=== PATIENT | male | born 1955 | race Caucasian/White ===

== ENCOUNTER 2021-09-28 06:04 | Inpatient (IN) | payer OTHER ==
[~2021-09-28] VITALS: Ht 185.4 cm; Wt 91.6 kg
[2021-09-28] MEDS ORDERED: ONDANSETRON HCL/PF 4 MG/2 ML VIAL ONE (06:21)
[2021-09-28] MEDS ORDERED: MORPHINE SULFATE INJ 4 MG/ML DISP.SYRIN ONE (06:21)
[2021-09-28] MEDS ORDERED: IV NS 0.9% 500 ML BAG IV ONE (06:30)
[2021-09-28] MEDS ORDERED: ONDANSETRON HCL/PF 4 MG/2 ML VIAL IVP ONE (06:30)
[2021-09-28] MEDS ORDERED: MORPHINE SULFATE INJ 2 MG/ML DISP.SYRIN IV ONE (06:30)
--- NOTE | 2021-09-28 06:38 | NUR ---
PATIENT [id number] C/O ABD NON RAD, STARTED AT 0200. PATIENT IS A/O X 4 RR EVEN AND UNLABORED, NO SOB NOTED. PATIENT TAKEN TO ER BED 06. PATIENT CONNECTED TO CARDIAC AND POX MONITOR.
--- NOTE | 2021-09-28 06:39 | NUR ---
BLOOD WORK COLLECTED AND SENT TO LAB
--- NOTE | 2021-09-28 06:40 | NUR ---
PATIENT UNABLE TO PROVIDE URINE AT THIS TIME. PATIENT WILL KEEP TRYING.
[2021-09-28 06:52] LABS: BASOPHILS # (AUTO) 0.1 K/uL (0.0-0.2); BASOPHILS % (AUTO) 0.6 % (0.0-2.0); EOSINOPHILS % (AUTO) 0.6 % (0.0-6.0); HEMATOCRIT 42 % (39-51); HEMOGLOBIN 14.8 g/dL (13.5-17.5); LYMPHOCYTES # (AUTO) 2.1 K/uL (0.8-4.8); MEAN CORPUSCULAR HGB CONC 35 g/dl (31.0-36.0); MEAN CORPUSCULAR VOLUME 91 fL (80-96); MONOCYTES # (AUTO) 0.5 K/uL (0.1-1.30); MONOCYTES % (AUTO) 4.9 % (2.0-12.0); NEUTROPHILS # (AUTO) 7.3 K/uL (1.8-8.9); NEUTROPHILS % (AUTO) 72.9 % (43.0-81.0); PLATELET COUNT (AUTO) 282 K/uL (150-450); RED BLOOD CELL COUNT(AUTO) 4.63 MIL/uL (4.5-6.0)
--- NOTE | 2021-09-28 06:55 | NUR ---
PATIENT TAKEN TO CT
[2021-09-28 07:18] LABS: ALBUMIN 4.3 g/dL (3.4-5.0); BILIRUBIN,DIRECT 0.1 mg/dL (0.0-0.2); BILIRUBIN,TOTAL 0.5 mg/dL (0.2-1.0); CALCIUM, SERUM 8.9 mg/dL (8.5-10.1); CREATININE 1.1 mg/dL (0.6-1.3); POTASSIUM 3.3 mmol/L (3.5-5.1); TOTAL PROTEIN, SERUM 7.8 g/dL (6.4-8.2)
--- NOTE | 2021-09-28 08:02 | NUR ---
URINE COLLECTED AND SENT TO LAB
[2021-09-28 08:18] LABS: BILIRUBIN,URINE NEGATIVE (NEGATIVE); COLOR,URINE YELLOW (YELLOW); LEUKOCYTE ESTERASE ,URINE NEGATIVE (NEGATIVE); NITRITE, URINE NEGATIVE (NEGATIVE); PH,URINE 6.5 (5.0-8.0); PROTEIN,URINE NEGATIVE (NEGATIVE); UGLUCOSE NEGATIVE (NEGATIVE); UROBILINOGEN,URINE 0.2 EU/dL (0.2)
--- NOTE | 2021-09-28 08:29 | NUR ---
covid antigen swab done and sent to the lab
[2021-09-28] MEDS ORDERED: PIPERACILLIN /TAZOBACTAM 3.375 G in IV D5W 50 ML IV ONE (08:30)
[2021-09-28] MEDS ORDERED: DOCU250C14 PO (08:38)
[2021-09-28] MEDS ORDERED: ERGO500093 PO (08:38)
[2021-09-28] MEDS ORDERED: ATOR10TA PO (08:38)
[2021-09-28] MEDS ORDERED: AMLO-212 PO (08:38)
[2021-09-28] MEDS ORDERED: CITA20TA16 PO (08:38)
--- NOTE | 2021-09-28 08:40 | NUR ---
MOVE SHEET SUBMITTED.
[2021-09-28 08:53] LABS: BACTERIA,URINE Rare /HPF (None Seen); RBC,URINE 0-2 /HPF (0-2); SQUAMOUS EPITHELIAL CELL,UR Few /HPF (None Seen); WBC,URINE 0-2 /HPF (0-3)
--- NOTE | 2021-09-28 09:11 | NUR ---
TAKEN VIA [facility] FOR HIDA SCAN
[2021-09-28] MEDS ORDERED: HYDROMORPHONE 1 MG/1 ML DISP.SYRIN IV ONE (10:30)
[2021-09-28] MEDS ORDERED: HYDROMORPHONE 1 MG/1 ML DISP.SYRIN ONE (10:53)
--- NOTE | 2021-09-28 12:32 | NUR ---
[facility]
--- NOTE | 2021-09-28 13:44 | NUR ---
THE PATIENT IS TRANSFERED TO ROOM 304-2 IN STABLE CONDITION AND PER POLICY
[2021-09-28] MEDS: ENOXAPARIN SODIUM 40 MG/0.4 ML DISP.SYRIN SQ SCH (14:00)
[2021-09-28] MEDS: IV NS 0.9% 1,000 ML IV PRN (14:50)
--- NOTE | 2021-09-28 15:01 | NUR ---
MS REMOTE RUBY ON RAILS DEVELOPER NOTE PT ADMITTED TO UNIT VIA WHEELCHAIR AT 1420 WITH DIAGNOSIS OF ACUTE CHOLECYSTITIS. A/O X4. ABLE TO MAKE NEEDS KNOWN. PT ORIENTED TO STAFF AND ROOM. V/S TAKEN AND RECORDED. PT ON ROOM AIR, TOLERATING WELL, BREATHING EVEN AND UNLABORED, NO ACUTE RESPIRATORY DISTRESS NOTED. SKIN IS INTACT. IV ACCESS NOTED ON RAC #20G INTACT AND PATENT, IVF OF NS @ 75ML/HR STARTED PER MD ORDER. LUNGS CLEAR ON AUSCULTATION. ABDOMEN SOFT, MILD TENDERNESS NOTED ON RIGHT UPPER QUADRANT WITH POSITIVE BOWEL SOUNDS PRESENT. SAFETY PRECAUTIONS IMPLEMENTED: BED IN LOWEST LOCKED POSITION, SIDE RAILS UP X2 CALL LIGHT AND TRAY TABLE WITHIN PLACED W/I EASY REACH OF PT. MAINTAINED PT NPO ORDERED. WILL CONTINUE TO MONITOR PT ACCORDINGLY.
--- NOTE | 2021-09-28 15:09 | NUR ---
RN NOTES HOLD LOVENOX TODAY PER DR CHAUDHARY.
--- NOTE | 2021-09-28 15:30 | NUR ---
RN NOTES PATIENT ASKED FOR PAIN MEDICATION BUT CHANGED HIS MIND SAYING HE IS ABLE TO TOLERATE IT FOR NOW. WILL ASK AGAIN LATER.
[2021-09-28 16:00] VITALS: BP 161/101
--- NOTE | 2021-09-28 17:12 | NUR ---
RN NOTES PT FOR LAP CHOLECYSTECTOMY BY DR ROSE TOMORROW. ALL CONSENTS SIGNED AND PLACED ON HIS CHART. NPO MAINTAINED.
[2021-09-28] MEDS ORDERED: PIPERACILLIN /TAZOBACTAM 3.375 G in IV D5W 50 ML IV SCH (18:00)
[2021-09-28] MEDS: PIPERACILLIN /TAZOBACTAM 3.375 G in IV D5W 100 ML IV SCH (18:14)
--- NOTE | 2021-09-28 18:20 | NUR ---
RN NOTES NOTED POTASSIUM IS LOW AT 3.3, REPORTED TO PHARMACY AND SPOKE TO [facility] WHO PLACED AN ORDER FOR A REPLACEMENT.
[2021-09-28] MEDS: POTASSIUM CL. PREMIX PERIPHER. 50 ML IV SCH ×2 (18:45→20:01)
--- NOTE | 2021-09-28 19:00 | NUR ---
MS VENEER MANUFACTURER NOTE PATIENT A/O X4. ABLE TO MAKE NEEDS KNOWN. PT ORIENTED TO STAFF AND ROOM. . PT ON ROOM AIR, TOLERATING WELL, BREATHING EVEN AND UNLABORED, NO ACUTE RESPIRATORY DISTRESS NOTED. SKIN IS INTACT. IV ACCESS NOTED ON RAC #20G INTACT AND PATENT WITH RUNNING ZOSYN AND REPLACEMENT POTASSIUM ON Y-TUBING. REINFORCED NPO HEALTH TEACHING FOR NEXT DAY'S PROCEDURE. PATIENT VERBALIZED UNDERSTANDING. PATIENT'S BED IN LOWEST LOCKED POSITION, SIDE RAILS UP X2 CALL LIGHT AND TRAY TABLE WITHIN PLACED W/I EASY REACH OF PT. Addendum: 09/28/21 at 1901 by JIGNA HERNANDEZ RN CORRECTION: MS ZAPIEN CLOSING NOTES
--- NOTE | 2021-09-28 19:35 | NUR ---
MS RN OPENING NOTE PATIENT AWAKE IN BED, ALERT/ORIENTED X 4, PT ABLE TO MAKE NEEDS KNOWN. PT STABLE ON RA, NO S/S OF DISTRESS OR SOB NOTED, BREATHING EVEN AND UNLABORED. PT EXPERIENCING PAIN BUT STATES DOESN'T WANT PAIN MEDS AT THIS TIME, PT ALSO EXPERIENCING HICCUPS. RAC #20G INTACT AND INFUSING ZOSYN 25 ML/HR AND POTASSIUM @ 25 ML/HR. SAFETY MEASURES IN PLACE: CALL LIGHT WITHIN REACH, SIDE RAILS UP X 2, BED LOCKED IN LOWEST POSITION, BED ALARM ON. WILL CONTINUE TO MONITOR PATIENT
[2021-09-28 20:00] VITALS: BP 160/100
--- NOTE | 2021-09-28 20:25 | NUR ---
MS RN NOTE PATIENT REPORTING 10/10 ABDOMINAL PAIN, NAUSEA, AND CONSTANT HICCUPS. PATIENT STATES HE'S FEELING DIAPHORETIC AND CHILLS, SOME REDNESS ON SKIN NOTED, NO RASH OR ITCHING. IV DISCONNECTED AND LINE FLUSHED PER CHARGE NURSE, PREVIOUSLY RUNNING ZOSYN @ 25 ML/HR AND POTASSIUM @ 25 ML/HR. PATIENT CONNECTED TO EXTERNAL JOINTER OPERATOR TO MONITOR PATIENT, SHOWING SINUS TACHY, HR: 108. WILL CONTINUE TO MONITOR.
[2021-09-28] MEDS: ONDANSETRON HCL/PF 4 MG/2 ML VIAL IVP PRN (20:34)
[2021-09-28] MEDS: MORPHINE SULFATE INJ 2 MG/ML DISP.SYRIN IV PRN (20:34)
--- NOTE | 2021-09-28 20:35 | NUR ---
MS RN NOTE MORPHINE 2 MG IV AND ZOFRAN 4 MG IV GIVEN FOR 10/10 ABDOMINAL PAIN AND NAUSEA. WILL CONTINUE TO MONITOR PATIENT
--- NOTE | 2021-09-28 20:45 | NUR ---
MS RN NOTE PATIENT FEELING MUCH BETTER, NAUSEA, HICCUPS AND PAIN IMPROVED. NO LONGER HAVING CHILLS. NO RASH NOTED. PATIENT CONNECTED TO IVF - NS @ 75 ML/HR. WILL CONTINUE TO MONITOR
[2021-09-28] MEDS ORDERED: MAG HYDROX/AL HYDROX/SIMETH 30 ML UDC PO ONE (23:45)
--- NOTE | 2021-09-29 | NUR ---
MS RN NOTE PATIENT CONTINUES TO EXPERIENCE CONSTANT HICCUPS, DYSPEPSIA AND NAUSEA. CONTACT MANAGER APPLICATION DEVELOPMENT MD WITH ONE TIME ORDER FOR MAALOX 30 ML, ORDER CONFIRMED AND CARRIED OUT. WILL CONTINUE TO MONITOR PATIENT
[2021-09-29] MEDS: MORPHINE SULFATE INJ 2 MG/ML DISP.SYRIN IV PRN (02:34)
[2021-09-29] MEDS: ONDANSETRON HCL/PF 4 MG/2 ML VIAL IVP PRN (02:34)
--- NOTE | 2021-09-29 02:40 | NUR ---
MS RN NOTE PATIENT REPORTING 10/10 ABDOMINAL PAIN AND NAUSEA. MORPHINE 2 MG IV AND ZOFRAN 4 MG IV GIVEN ORDERED. WILL CONTINUE TO MONITOR PATIENT
[2021-09-29] MEDS: PIPERACILLIN /TAZOBACTAM 3.375 G in IV D5W 100 ML IV SCH ×3 (03:41→18:07)
[2021-09-29 06:10] LABS: BASOPHILS # (AUTO) 0.1 K/uL (0.0-0.2); BASOPHILS % (AUTO) 0.3 % (0.0-2.0); HEMATOCRIT 43 % (39-51); LYMPHOCYTES # (AUTO) 2.7 K/uL (0.8-4.8); LYMPHOCYTES % (AUTO) 13.9 % (20.0-44.0); MEAN CORPUSCULAR HGB CONC 35 g/dl (31.0-36.0); MEAN CORPUSCULAR VOLUME 92 fL (80-96); MONOCYTES # (AUTO) 1.5 K/uL (0.1-1.30); MONOCYTES % (AUTO) 7.6 % (2.0-12.0); NEUTROPHILS # (AUTO) 15.3 K/uL (1.8-8.9); NEUTROPHILS % (AUTO) 78.2 % (43.0-81.0); PLATELET COUNT (AUTO) 286 K/uL (150-450); RED BLOOD CELL COUNT(AUTO) 4.71 MIL/uL (4.5-6.0); WHITE BLOOD COUNT (AUTO) 19.6 K/uL (4.3-11.0)
[2021-09-29 07:16] LABS: CALCIUM, SERUM 8.9 mg/dL (8.5-10.1); PHOSPHORUS 3.5 mg/dL (2.5-4.9); POTASSIUM 3.7 mmol/L (3.5-5.1)
--- NOTE | 2021-09-29 07:25 | NUR ---
MS RN OPENING NOTE RECEIVED PT AWAKE IN BED. A/O X4, ABLE TO MAKE NEEDS KNOWN. ON RA TOLERATING WELL. NO SOB NOTED. NOT IN ANY SIGN OF RESPIRATORY DISTRESS. IV ACCESS IN RAC G #20 INTACT AND PATENT WITH NS INFUSING AT 75ML/HR. SAFETY MEASURES IN PLACE: BED IN LOWEST AND LOCKED POSITION, SIDE RAILS UPX2, CALL LIGHT WITHIN REACH. WILL CONTINUE TO MONITOR PT.
--- NOTE | 2021-09-29 07:26 | NUR ---
MS RN CLOSING NOTE PATIENT AWAKE IN BED, ALERT/ORIENTED X 4, PT ABLE TO MAKE NEEDS KNOWN. PT STATES HE'S FEELING MUCH BETTER THIS MORNING, NO COMPLAINTS OF PAIN. PT STABLE ON RA, NO S/S OF DISTRESS OR SOB NOTED, BREATHING EVEN AND UNLABORED. RAC #20G INTACT AND INFUSING ZOSYN 25 ML/HR. MEDICATIONS GIVEN ORDERED, PT NEEDS MET THROUGHOUT SHIFT. PATIENT KEPT NPO FOR SURGERY TODAY, ALL CONSENTS SIGNED. SAFETY MEASURES IN PLACE: CALL LIGHT WITHIN REACH, SIDE RAILS UP X 2, BED LOCKED IN LOWEST POSITION, BED ALARM ON. ENDORSED TO DAY SHIFT NURSE FOR CONTINUITY OF CARE
[2021-09-29] MEDS: PANTOPRAZOLE 40 MG VIAL IV SCH (08:23)
[2021-09-29] MEDS: ENOXAPARIN SODIUM 40 MG/0.4 ML DISP.SYRIN SQ SCH (08:24)
--- NOTE | 2021-09-29 08:24 | NUR ---
RN NOTE LOVENOX SCHEDULED AT 0900 NOT ADMINISTERED, PT WILL HAVE LAPAROSCOPIC CHOLECYSTECTOMY POSSIBLE OPEN SURGERY AT 0900 TODAY.
[2021-09-29] MEDS ORDERED: SUCCINYLCHOLINE CHLORIDE 20 MG/ML VIAL ONE (08:40)
[2021-09-29] MEDS ORDERED: FENTANYL PF 100MCG/2ML AMPUL ONE ×2 (08:40→11:47)
[2021-09-29] MEDS ORDERED: DEXAMETHASONE SOD PHOSPHATE 4 MG/ML VIAL ONE (08:40)
[2021-09-29] MEDS ORDERED: GLYCOPYRROLATE 0.2 MG/ML VIAL ONE (08:40)
--- NOTE | 2021-09-29 08:40 | NUR ---
RN NOTE PT LEFT THE UNIT WITH OR STAFF FOR A LAPAROSCOPIC CHOLECYSTECTOMY POSSIBLE OPEN SURGERY SCHEDULED AT 0900 TODAY.
[2021-09-29] MEDS ORDERED: ROCURONIUM BROMIDE 50 MG/5 ML ONE (08:46)
[2021-09-29] MEDS ORDERED: ANESTHESIA TRAY IN PYXIS 1 EA TRAY MC ONE (08:51)
[2021-09-29] MEDS ORDERED: BUPIVACAINE MPF 0.5% W/EPI INJ 30 ML VIAL ONE (08:52)
[2021-09-29] MEDS ORDERED: LIDOCAINE 1% INJ 50 ML MDV IJ ONE (08:52)
[2021-09-29] MEDS ORDERED: LABETALOL HCL IV 100MG VIAL ONE (09:52)
[2021-09-29] MEDS ORDERED: SEVOFLURANE 250 ML BOTTLE IH ONE (10:01)
[2021-09-29] MEDS ORDERED: CELLULOSE,OXIDIZED 1 EA PACK MC ONE (10:45)
[2021-09-29] MEDS ORDERED: BACITRACIN ZINC OINT PACKET 1 EA PACKET TP ONE (11:18)
--- NOTE | 2021-09-29 12:54 | NUR ---
RN NOTE PT BACK TO THE UNIT FROM SURGERY WITH OR NURSE PAT. PT ON S/P LAPAROSCOPIC CHOLECYSTECTOMY. DRESSING IN PLACE WITH NO BLEEDING OR DRAINAGE. DENIES PAIN OR DISCOMFORT AT THIS TIME. V/S BP 154/88, P 97, R 19, TEMP 98.0, SPO2 94%. WILL CONTINUE TO MONITOR PT.
--- NOTE | 2021-09-29 13:24 | NUR ---
RN NOTE REASSESSED PT ON S/P LAPAROSCOPIC CHOLECYSTECTOMY. DRESSING IN PLACE WITH NO BLEEDING OR DRAINAGE. DENIES PAIN OR DISCOMFORT AT THIS TIME. V/S BP 140/84, P 87, R 18, TEMP 98.2, SPO2 95%. WILL CONTINUE TO MONITOR PT.
--- NOTE | 2021-09-29 14:24 | NUR ---
RN NOTE REASSESSED PT ON S/P LAPAROSCOPIC CHOLECYSTECTOMY. DRESSING IN PLACE WITH NO BLEEDING OR DRAINAGE. DENIES PAIN OR DISCOMFORT AT THIS TIME. V/S BP 135, P 80, R 18, TEMP 98.0, SPO2 96%. WILL CONTINUE TO MONITOR PT.
[2021-09-29] MEDS: IV NS 0.9% 1,000 ML IV PRN (15:02)
[2021-09-29] MEDS: GABAPENTIN 300 MG CAPSULE PO SCH ×2 (15:03→22:12)
[2021-09-29] MEDS: ACETAMINOPHEN 325 MG TABLET PO SCH ×2 (15:03→22:12)
[2021-09-29] MEDS: IBUPROFEN 400 MG TABLET PO SCH ×2 (15:03→22:12)
--- NOTE | 2021-09-29 18:31 | NUR ---
MS RN CLOSING NOTE PT AWAKE IN BED. A/O X4, ABLE TO MAKE NEEDS KNOWN. ON RA TOLERATING WELL. NO SOB NOTED. NOT IN ANY SIGN OF RESPIRATORY DISTRESS. ON S/P LAPAROSCOPIC CHOLECYSTECTOMY. DRESSING IN PLACE WITH NO BLEEDING OR DRAINAGE. DENIES PAIN OR DISCOMFORT AT THIS TIME. IV ACCESS IN RAC G #20 INTACT AND PATENT WITH NS INFUSING AT 75ML/HR. ALL NEEDS ATTENDED. KEPT CLEAN AND COMFORTABLE. SAFETY MEASURES IN PLACE: BED IN LOWEST AND LOCKED POSITION, SIDE RAILS UPX2, CALL LIGHT WITHIN REACH. WILL ENDORSE TO [employer] INTEGRATION SPECIALIST NURSE FOR [facility].
--- NOTE | 2021-09-29 19:00 | NUR ---
Rn opening notes Received Pt from morning nurse. Pt is sitting in bed comfortably. Pt is alert and orientedX4. On room air. No SOB. no S/S of distress noted. Pt denies any pain. S/p laparascopic cholecystectomy with Dr. Younger. IV site at Rac# 20 is clean, intact and infusing well zosyn. Abd. sx dressing is intact, clean, and dry. safety precautions is maintained. Bed at low position, brakes locked, side rails upX2, hob elevated, urinal at the bed side and call light is within reach. Will continue to monitor.
[2021-09-29 20:00] VITALS: BP 135/78
[2021-09-30] MEDS: PIPERACILLIN /TAZOBACTAM 3.375 G in IV D5W 100 ML IV SCH ×2 (02:34→11:23)
[2021-09-30 06:29] LABS: BASOPHILS % (AUTO) 0.1 % (0.0-2.0); EOSINOPHILS % (AUTO) 0.1 % (0.0-6.0); HEMATOCRIT 36 % (39-51); HEMOGLOBIN 12.1 g/dL (13.5-17.5); LYMPHOCYTES # (AUTO) 1.8 K/uL (0.8-4.8); MEAN CORPUSCULAR HGB CONC 34 g/dl (31.0-36.0); MEAN CORPUSCULAR VOLUME 95 fL (80-96); MONOCYTES # (AUTO) 1.2 K/uL (0.1-1.30); MONOCYTES % (AUTO) 8.6 % (2.0-12.0); NEUTROPHILS # (AUTO) 10.9 K/uL (1.8-8.9); NEUTROPHILS % (AUTO) 78.2 % (43.0-81.0); PLATELET COUNT (AUTO) 212 K/uL (150-450); RED BLOOD CELL COUNT(AUTO) 3.75 MIL/uL (4.5-6.0); WHITE BLOOD COUNT (AUTO) 13.9 K/uL (4.3-11.0)
--- NOTE | 2021-09-30 06:51 | NUR ---
RN closing notes Pt is resting in bed comfortably. Pt is alert and orientedX4. On room air. No SOB. No S/S of distress noted. VS is stable. Routine meds were given as ordered. IV site at Rac# 20 is clean, intact and infusing well NS@ 75ml/hr. Abd. sx dressing is intact, clean, and dry. Kept Pt clean, dry and comfortable. safety precautions is maintained. Bed at low position, brakes locked, side rails upX2, hob elevated, urinal at the bed side and call light is within reach. Will endorse to am nurse for [facility].
[2021-09-30] MEDS: IBUPROFEN 400 MG TABLET PO SCH ×2 (07:16→14:30)
[2021-09-30] MEDS: ACETAMINOPHEN 325 MG TABLET PO SCH ×2 (07:16→14:30)
[2021-09-30] MEDS: GABAPENTIN 300 MG CAPSULE PO SCH ×2 (07:16→14:30)
[2021-09-30 07:22] LABS: ALBUMIN 3.2 g/dL (3.4-5.0); CALCIUM, SERUM 8.5 mg/dL (8.5-10.1); CREATININE 1.2 mg/dL (0.6-1.3); MAGNESIUM 2.5 mg/dL (1.8-2.4); PHOSPHORUS 3.1 mg/dL (2.5-4.9); POTASSIUM 3.9 mmol/L (3.5-5.1)
--- NOTE | 2021-09-30 07:25 | NUR ---
MS RN OPENING NOTE RECEIVED PT ASLEEP IN BED, EASILY AROUSED. A/O X4, ABLE TO MAKE NEEDS KNOWN. ON RA TOLERATING WELL. NO SOB NOTED. NOT IN ANY SIGN OF RESPIRATORY DISTRESS. ON S/P LAPAROSCOPIC CHOLECYSTECTOMY. DRESSING IN PLACE WITH NO BLEEDING OR DRAINAGE. DENIES PAIN OR DISCOMFORT AT THIS TIME. IV ACCESS IN RAC G #20 INTACT AND PATENT WITH NS INFUSING AT 75ML/HR. SAFETY MEASURES IN PLACE: BED IN LOWEST AND LOCKED POSITION, SIDE RAILS UPX2, CALL LIGHT WITHIN REACH. WILL CONTINUE TO MONITOR PT.
[2021-09-30 08:03] LABS: BILIRUBIN,TOTAL 0.7 mg/dL (0.2-1.0); TOTAL PROTEIN, SERUM 6.3 g/dL (6.4-8.2)
[2021-09-30] MEDS: PANTOPRAZOLE 40 MG VIAL IV SCH (08:24)
[2021-09-30] MEDS: ENOXAPARIN SODIUM 40 MG/0.4 ML DISP.SYRIN SQ SCH (08:25)
--- NOTE | 2021-09-30 18:20 | NUR ---
PIT LABORER NOTE PT DISCHARGED TO HOME IN STABLE CONDITION. PT A/O X4, ABLE TO MAKE NEEDS KNOWN. ON RA, TOLERATING WELL WITH SPO2 98%. NO SOB NOTED. NOT IN ANY SIGN OF RESPIRATORY DISTRESS. VITAL SIGNS TAKEN, STABLE, AND RECORDED. PT'S SKIN INTACT. ON S/P LAPAROSCOPIC CHOLECYSTECTOMY. DRESSING IN PLACE WITH NO BLEEDING OR DRAINAGE. DENIES PAIN OR DISCOMFORT AT THIS TIME. ALL BELONGINGS ACCOUNTED FOR. DISCHARGED INSTRUCTIONS AND HEALTH TEACHINGS GIVEN TO PT AND PT VERBALIZED UNDERSTANDING. IV ACCESS IN RAC G #20 REMOVED WITH NO ACTIVE BLEEDING NOTED. DRY PRESSURE DRESSING APPLIED AT SITE. PT LEFT THE UNIT AT 1810 VIA WHEELCHAIR ACCOMPANIED BY LOUISE SMITH. PT PICKED UP BY [employer]. PER DR. ROSE, IT'S OKAY FOR PT TO TAKE THE [facility]. AND CHARGED NURSE AWARE OF DISCHARGED.
[2021-10-01] MEDS ORDERED: PANTOPRAZOLE 40 MG TABLET.DR PO SCH (09:00)
== END 2021-09-30 19:00 | disposition home or self-care (01) | DRG 263 ==
LOC: ER 06:08 → MED 13:14
PROC: 0FT44ZZ Resection of Gallbladder, Percutaneous Endoscopic Approach (ICD-10-PCS; principal; 2021-09-29)
DX: K80.01 Calculus of gallbladder with acute cholecystitis with obstruction (principal); E78.5 Hyperlipidemia, unspecified; I10 Essential (primary) hypertension; Z98.890 Other specified postprocedural states; F41.9 Anxiety disorder, unspecified; Z79.899 Other long term (current) drug therapy; K66.0 Peritoneal adhesions (postprocedural) (postinfection); Z20.822 Contact with and (suspected) exposure to COVID-19; N40.0 Benign prostatic hyperplasia without lower urinary tract symptoms; I48.91 Unspecified atrial fibrillation; K40.20 Bilateral inguinal hernia, without obstruction or gangrene, not specified as recurrent
CPT/HCPCS: 36415; 76705-TC; 78226; 80048-TC; 80053-TC; 80076-TC; 81001; 83690-TC; 83735-TC; 84100-TC; 85025-TC; 87040-TC; 87081-TC; A9537; C9113; C9803; G0378; J0330; J0690; J1100; J1170; J1650; J2270; J2405; J2543; J2704; J3010; J3480; J3490; J7030; J7040; J7060